=== PATIENT | female | born 1945 | race African-American/Black ===

== ENCOUNTER → 2018-06-14 | Outpatient (REF) | payer MEDICARE ==
[~2018-06-14] MED LIST: AMITRIPTYLIN25 MG PO; AMLODIPINE10 MG PO; AMLODIPINE5 MG PO; AMOXICILLIN500 MG PO; ASPIRIN CHEWABL81 MG PO; ASPIRIN LOW DOS81 M2 PO; ATORVASTATIN CA40 MG PO; AUGMENTIN875TAB PO; CRESTOR10 MG PO; CUBICIN500 MG IV; DOXYCYCL HYC100 MG PO; FERROUS SULF325 M2 PO; FLAGYL500 MG OR; FLORANEX PO; GLYBURIDE5 MG PO; HYZAAR1 TA1 PO; KEFLEX500 MG OR; LAMISIL AT1 % EX; LEVEMIR1000 UNITS SC; LORTAB 5/3255 MG PO; LOSARTAN POT50 MG PO; LYRICA25 MG PO; METFORMIN500 MG PO; NAPROXEN250 MG PO; NOVOLOG100 IU/1 M SC; PERCOCET 5/325M1 TAB PO; ROBITUSSIN AC10 ML PO; SILVADENE1 % EX
[2018-06-14 08:49] LABS: ANION GAP 13 (6-22 (CALC)); BUN 16 mg/dL (8-23); BUN/CREATININE RATIO 18 (12-20 (CALC)); CARBON DIOXIDE 26 mmol/l (22-30); CHLORIDE 107 mmol/l (95-108); CREATININE 0.9 mg/dL (0.5-1.0); GFR > 60 ML/MIN (>=60 (CALC)); GFR FOR AFR.AMER. > 60 ML/MIN (>=60 (CALC)); POTASSIUM 4.1 mmol/l (3.5-5.1); SODIUM 142 mmol/l (137-146)
== END | disposition home or self-care (01) ==
LOC: LAB 07:55
PROVIDERS: ATTEND Nurse Practitioner Family
DX: N18.9 Chronic kidney disease, unspecified (principal)

== ENCOUNTER → 2018-06-27 | Outpatient (REF) | payer MEDICARE, MEDICAID | END | disposition home or self-care (01) | LOC: DI 08:26 | PROVIDERS: ATTEND Nurse Practitioner Family | DX: R07.81 Pleurodynia (principal) ==

== ENCOUNTER 2018-11-10 10:21 | Emergency (ER) | payer MEDICARE ==
[~2018-11-10] VITALS: Ht 165.1 cm; Wt 96.8 kg
[2018-11-10] MEDS ORDERED: GABAPENTIN100 MG PO (10:42)
[2018-11-10] MEDS ORDERED: HYDROCHLOROT25 MG PO (10:43)
[2018-11-10] MEDS ORDERED: TIZANIDINE HCL2 M1 PO (10:43)
[2018-11-10] MEDS ORDERED: HYZAAR1 TAB PO (10:44)
[2018-11-10] MEDS ORDERED: (None)1 % OS (10:48)
[2018-11-10] MEDS ORDERED: LEVEMIR100 UNIT/M SC ×2 (10:49→10:50)
[2018-11-10] MEDS ORDERED: TRULICITY1.5 MG/0.5 SC (10:51)
[2018-11-10] MEDS ORDERED: CEPHALEXIN500 M1 PO (10:52)
[2018-11-10 11:25] VITALS: BP 145/91
== END 2018-11-10 11:25 | disposition home or self-care (01) ==
LOC: ED 10:21
DX: T81.41XA Infection following a procedure, superficial incisional surgical site, initial encounter (principal); E11.9 Type 2 diabetes mellitus without complications; I10 Essential (primary) hypertension; Y83.8 Other surgical procedures as the cause of abnormal reaction of the patient, or of later complication, without mention of misadventure at the time of the procedure; Z89.422 Acquired absence of other left toe(s); Z89.421 Acquired absence of other right toe(s)

== ENCOUNTER 2020-03-21 20:31 | Emergency (ER) | payer MEDICARE ==
[~2020-03-21] VITALS: Ht 165.1 cm; Wt 97.0 kg
[~2020-03-21 20:31] MED LIST changes: +(None)1 % OS; +CEPHALEXIN500 M1 PO; +GABAPENTIN100 MG PO; +HYDROCHLOROT25 MG PO; +HYZAAR1 TAB PO; +LEVEMIR100 UNIT/M SC; +TIZANIDINE HCL2 M1 PO; +TRULICITY1.5 MG/0.5 SC
[2020-03-21 20:50] VITALS: BP 187/96
== END 2020-03-21 22:23 | disposition home or self-care (01) ==
LOC: ED 20:31
DX: Z20.828 Contact with and (suspected) exposure to other viral communicable diseases (principal); E11.9 Type 2 diabetes mellitus without complications; I10 Essential (primary) hypertension